=== PATIENT | male | born 1990 | race African-American/Black ===

== ENCOUNTER 2020-05-16 00:38 | Emergency (ER) | payer MEDICAID ==
[~2020-05-16] VITALS: Ht 182.9 cm; Wt 87.0 kg
[2020-05-16 03:33] VITALS: BP 120/81
== END 2020-05-16 03:33 | disposition home or self-care (01) ==
LOC: ER 00:38
DX: S49.92XA Unspecified injury of left shoulder and upper arm, initial encounter (principal); M54.5 Low back pain; J45.909 Unspecified asthma, uncomplicated; V49.9XXA Car occupant (driver) (passenger) injured in unspecified traffic accident, initial encounter; Y93.89 Activity, other specified; Y92.89 Other specified places as the place of occurrence of the external cause; Y99.8 Other external cause status
CPT/HCPCS: 72100; 73030; 99284